=== PATIENT | female | born 1935 | race Two or more races ===

== ENCOUNTER 2021-12-04 11:21 | Emergency (ER) | payer OTHER, SELFPAY ==
--- NOTE | ~2021-12-04 | XR_ITS ---
EXAMINATION: XR chest 1V CLINICAL INFORMATION: Reason for Exam cardiac arrest, pulm edema? COMPARISON: None TECHNIQUE: XR chest 1V Tubes and lines: Endotracheal tube tip is approximately 3.6 cm from cathie, gastric tube passing below the diaphragm into the stomach. Lungs and pleura: Bilateral diffuse airspace interstitial opacification suggesting diffuse infiltrates possible aspiration or pulmonary edema. Heart and mediastinum: The mediastinum is within normal limits.. Bones/soft tissue: Skeletal structures included are normal for patient's age. XR/XR chest 1V IMPRESSION: *Bilateral diffuse interstitial and airspace opacification suggesting diffuse infiltrates versus interstitial edema. *ET tube and gastric tube in place properly positioned.
--- NOTE | 2021-12-04 11:30 | PC.NURSE ---
plz see paperwork.
[2021-12-04 11:40] LABS: MANUAL DIFF FLAG NO
[2021-12-04 11:47] VITALS: BP 148/92; PULSE 138; TEMP 35.5; O2SAT 90
[2021-12-04 11:53] LABS: Glucose, Whole Blood 131 mg/dL (60-115)
[2021-12-04 11:58] LABS: Basophils Percent Auto 0.3 % (0-2); Eosinophils Absolute Auto 0.1 X10*3/uL (0.0-0.4); Eosinophils Percent Auto 0.7 % (0-4); Hematocrit 24.8 % (37.0-47.0); Hemoglobin 7.8 g/dl (12.0-16.0); Imm Gran Abs Auto 0.15 X10*3/uL (0.00-0.03); Imm Gran Pct Auto 1.6 % (0.0-0.4); Lymphocytes Absolute Auto 3.1 X10*3/uL (1.2-4.9); Lymphocytes Percent Auto 32.8 % (20-40); Mean Corpuscular HGB Conc 31.5 g/dl (31.0-35.0); Mean Corpuscular Hemoglobin 32.2 pg (27.0-33.0); Mean Corpuscular Volume 102.5 fL (80.0-98.0); Mean Platelet Volume 11.1 fL (9.4-12.3); Monocytes Absolute Auto 0.5 X10*3/uL (0.1-1.2); Monocytes Percent Auto 5.6 % (2-11); Neutrophils Absolute Auto 5.6 x10*3/uL (2.0-8.3); Platelet Count 133 X10*3/uL (160-400); Red Blood Count 2.42 X10*6/uL (4.20-5.50); Red Cell Distribution Width 15.4 % (11.0-16.0); White Blood Count 9.5 X10*3/uL (4.8-10.8)
[2021-12-04 12:03] LABS: INTERNATIONAL NORM RATIO 1.5 (0.9-1.1); Prothrombin Time 17.8 SEC (10.0-13.1)
[2021-12-04 12:05] LABS: B Type Natriuretic Peptide 1035 pg/mL (<100); Troponin-I High Sensitivity 13.8 ng/L (<3.5-17.0)
[2021-12-04 12:16] LABS: D Dimer High Sensitivity 4459 NG/ML
[2021-12-04 12:20] LABS: Lactic Acid 5.3 mmol/L (0.5-2.0)
[2021-12-04 12:20] LABS: Alanine Aminotransferase 17 U/L (0-31); Albumin Level 2.4 g/dL (3.5-5.0); Alkaline Phosphatase 142 U/L (39-117); Anion Gap 16 (12-20); Aspartate Amino Transferase 35 U/L (5-31); Bilirubin Direct 0.3 mg/dL (0.0-0.5); Bilirubin Total 0.8 mg/dL (0.0-1.0); Blood Urea Nitrogen 17 mg/dL (9-16); Calcium 6.5 mg/dL (8.4-10.2); Carbon Dioxide 29 mmol/L (22-29); Chloride 101 mmol/L (96-108); Estimated Glomerular Filt Rate 26; Glucose Random 630 mg/dL (60-115); Magnesium 1.4 mg/dL (1.6-2.6); Potassium 2.8 mmol/L (3.3-5.1); Sodium 143 mmol/L (135-145); Total Protein 5.2 g/dL (6.5-8.0)
[2021-12-04 12:23] LABS: VBG Base Excess -1.2 mmol/L; VBG HCO3 26 mmol/L (22-26); VBG pCO2 58 mmHg; VBG pH 7.26 (7.32-7.43); VBG pO2 31 mmHg
[2021-12-04 12:24] LABS: Venous Blood Gas Refer to POC result
[2021-12-04 12:57] LABS: TSH reflex Free T4 2.52 uIU/mL (0.32-4.0)
--- NOTE | 2021-12-04 12:57 | PC.NURSE ---
TWO CALLS MADE TO [facility] STAT LINE FOR ED MD TO SPEAK WITH [facility] [place] [employer] TECHNICIAN. NO RESPONSE AT THIS TIME.
[2021-12-04 13:45] LABS: ABG Base Excess -1.1 mmol/L; ABG HCO3 26 mmol/L (22-26); ABG pCO2 56 mmHg (32-45); ABG pH 7.27 (7.35-7.45); ABG pO2 101 mmHg (83-108)
[2021-12-04 13:59] LABS: Reflex Lactate? Lactic Acid Added
--- NOTE | 2021-12-04 14:17 | ED_ITS ---
HPI - CPR General Chief Complaint: Cardiac Arrest/CPR Stated Complaint: CARDIAC ARREST Time Seen by Provider: 12/04/21 11:27 Source: EMS Mode of arrival: EMS Limitations: other (Intubated) History of Present Illness HPI narrative: Patient comes to the emergency room via EMS from dialysis. Patient arrived to the dialysis facility. Before the dialysis started, patient had a witnessed cardiac arrest, she was lowered from the recliner down to the floor, CPR was started. According to EMS, they did CPR for 2 minutes, 1 dose of epinephrine was given. They regained ROSC, heart rate in the 150s, blood pressure in the 90s, patient was brought to the emergency room. Patient was intubated in the field by EMS Related Data Allergies Allergy/AdvReac Type Severity Reaction Status Date / Time No Known Allergies Allergy Verified 12/04/21 11:42 Review of Systems Review of Systems: Yes Unobtainable due to mental condition PMFSH Past Medical History Medical History Atrial fibrillation CHF (congestive heart failure) End stage renal disease on dialysis Hx of assisted use of blood thinners Hypertension Social History Social History Advance Directives: No Physical Exam Vital Signs: Vital Signs: Last Vital Signs FiO2 100 12/04/21 11:47 Const: Other: Appearance: Unresponsive Eyes: Fixed by bilateral pupils, round and not reactive to light ENT: ET tube in place, there was a large amount of frothy sputum and blood in the ET tube Neck: Normal inspection. Neck supple. No lymph nodes noted. No crepitus CVS: Tachycardic, heart rate 150s blood pressure in the 90s Respiratory: Intubated Abdomen: Soft and distended Skin: Skin warm and dry. Diffusely pale Extremities: Bilateral +2 pitting edema Neuro: Unresponsive Psych: Unresponsive Course Course Course Narrative: Patient arrived approximately at 11:20. Patient was already intubated, heart rate in the 150s, blood pressure in the 90s. Shortly after, patient became pulseless, CPR was started. Patient has a right and left external jugular that was inserted by me, patient came in with an IO in her right tibia Patient had not had dialysis yet, there was no clear reason for patient's cardiac arrest, we were assuming hyperkalemia, we do not have I stat for potassium. We treated empirically for hyperkalemia with 2 amps of bicarbonate, 50 mg of D50, 10 units of insulin, calcium chloride After 2 rounds of CPR and 2 rounds of epinephrine, patient regained pulse Patient was also given rectal aspirin, patient took Eliquis last night In summary, from 11:20 to 14:50, patient went into cardiac arrest 7 times Each time that the patient will go into cardiac arrest, she will initially start with bradycardia for which I atropine was given, then arrest. Multiple doses of epinephrine were given, Levophed was started After 2-3 rounds of CPR, patient would regain ROSC with a heart rate in the 150s to 160s, blood pressure approximately [address] elevation in AVR and depression in the lateral leads In between cardiac arrest, Dr. Coffman was at bedside as well doing echocardiograph this and advising us. He did a bedside ultrasound, looks like the patient has anterior apical akenesis. We called [facility] cardiac analyst microbiology lab. Patient was admitted to the Cardiac CCU, patient was going to be life flighted but prior today arrival, patient went into cardiac arrest the 7th time. 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 All of the pressors were stopped. Within a few minutes patient went to a systole and time of was called at 02:50 with her family at bedside The cause of that is unclear, but likely secondary to hypoxia/pulmonary edema from a CHF exacerbation and and a possible evolving infarct MDM - Cardiac Arrest/CPR Lab Data Result diagrams: 12/04/21 11:31 12/04/21 11:31 Labs: Lab Results 12/04/21 12/04/21 12/04/21 Range/Units 11:24 11:31 11:31 WBC 9.5 (4.8-10.8) X10*3/uL RBC 2.42 L (4.20-5.50) X10*6/uL Hgb 7.8 L (12.0-16.0) g/dl Hct 24.8 L (37.0-47.0) % MCV 102.5 H (80.0-98.0) fL MCH 32.2 (27.0-33.0) pg MCHC 31.5 (31.0-35.0) g/dl RDW 15.4 (11.0-16.0) % Plt Count 133 L (160-400) X10*3/uL MPV 11.1 (9.4-12.3) fL Immature Gran % (Auto) 1.6 H (0.0-0.4) % Neut % (Auto) 59.0 (45-73) % Lymph % (Auto) 32.8 (20-40) % [place] % (Auto) 5.6 (2-11) % Eos % (Auto) 0.7 (0-4) % Baso % (Auto) 0.3 (0-2) % Lymph # (Auto) 3.1 (1.2-4.9) X10*3/uL [place] # (Auto) 0.5 (0.1-1.2) X10*3/uL Eos # (Auto) 0.1 (0.0-0.4) X10*3/uL Baso # (Auto) 0.0 (0.0-0.2) X10*3/uL Abs Immat Gran (auto) 0.15 H (0.00-0.03) X10*3/uL Absolute Neuts (auto) 5.6 (2.0-8.3) x10*3/uL Absolute Nucleated RBC 0.000 (0.0-0.012) X10*3/uL Nucleated RBC % (auto) 0.0 (0.0-0.2) /100WBC PT (10.0-13.1) SEC INR (0.9-1.1) Whole Blood INR D-Dimer High Sensitivty NG/ML O2 Saturation % ABG pH at Pt Temp (7.35-7.45) ABG pCO2 at Pt Temp (32-45) mmHg ABG pO2 at Pt Temp (83-108) mmHg ABG HCO3 (22-26) mmol/L ABG Base Excess (Actual) mmol/L VBG pH (7.32-7.43) VBG pCO2 mmHg VBG pO2 mmHg VBG HCO3 (22-26) mmol/L VBG O2 Saturation % VBG Base Excess mmol/L Sodium 143 (135-145) mmol/L Potassium 2.8 L (3.3-5.1) mmol/L Chloride 101 (96-108) mmol/L Carbon Dioxide 29 (22-29) mmol/L Anion Gap 16 (12-20) BUN 17 H (9-16) mg/dL Creatinine 1.82 H (0.5-1.4) mg/dL Estim Creat Clear Calc TNP Estimated GFR 26 POC Glucose 131 H (60-115) mg/dL Random Glucose 630 H* (60-115) mg/dL Lactic Acid (0.5-2.0) mmol/L Calcium 6.5 L (8.4-10.2) mg/dL Magnesium 1.4 L* (1.6-2.6) mg/dL Total Bilirubin 0.8 (0.0-1.0) mg/dL Direct Bilirubin 0.3 (0.0-0.5) mg/dL AST 35 H (5-31) U/L ALT 17 (0-31) U/L Alkaline Phosphatase 142 H (39-117) U/L Troponin I High Sens (<3.5-17.0) ng/L B-Natriuretic Peptide (<100) pg/mL Total Protein 5.2 L (6.5-8.0) g/dL Albumin 2.4 L (3.5-5.0) g/dL TSH 2.52 (0.32-4.0) uIU/mL COVID-19 ([facility]) (Negative) COVID-19 Clin Com 12/04/21 12/04/21 12/04/21 Range/Units 11:31 11:31 11:31 WBC (4.8-10.8) X10*3/uL RBC (4.20-5.50) X10*6/uL Hgb (12.0-16.0) g/dl Hct (37.0-47.0) % MCV (80.0-98.0) fL MCH (27.0-33.0) pg MCHC (31.0-35.0) g/dl RDW (11.0-16.0) % Plt Count (160-400) X10*3/uL MPV (9.4-12.3) fL Immature Gran % (Auto) (0.0-0.4) % Neut % (Auto) (45-73) % Lymph % (Auto) (20-40) % [place] % (Auto) (2-11) % Eos % (Auto) (0-4) % Baso % (Auto) (0-2) % Lymph # (Auto) (1.2-4.9) X10*3/uL [place] # (Auto) (0.1-1.2) X10*3/uL Eos # (Auto) (0.0-0.4) X10*3/uL Baso # (Auto) (0.0-0.2) X10*3/uL Abs Immat Gran (auto) (0.00-0.03) X10*3/uL Absolute Neuts (auto) (2.0-8.3) x10*3/uL Absolute Nucleated RBC (0.0-0.012) X10*3/uL Nucleated RBC % (auto) (0.0-0.2) /100WBC PT 17.8 H (10.0-13.1) SEC INR 1.5 H (0.9-1.1) Whole Blood INR Cancelled D-Dimer High Sensitivty 4459 NG/ML O2 Saturation % ABG pH at Pt Temp (7.35-7.45) ABG pCO2 at Pt Temp (32-45) mmHg ABG pO2 at Pt Temp (83-108) mmHg ABG HCO3 (22-26) mmol/L ABG Base Excess (Actual) mmol/L VBG pH (7.32-7.43) VBG pCO2 mmHg VBG pO2 mmHg VBG HCO3 (22-26) mmol/L VBG O2 Saturation % VBG Base Excess mmol/L Sodium (135-145) mmol/L Potassium (3.3-5.1) mmol/L Chloride (96-108) mmol/L Carbon Dioxide (22-29) mmol/L Anion Gap (12-20) BUN (9-16) mg/dL Creatinine (0.5-1.4) mg/dL Estim Creat Clear Calc Estimated GFR POC Glucose (60-115) mg/dL Random Glucose (60-115) mg/dL Lactic Acid (0.5-2.0) mmol/L Calcium (8.4-10.2) mg/dL Magnesium (1.6-2.6) mg/dL Total Bilirubin (0.0-1.0) mg/dL Direct Bilirubin (0.0-0.5) mg/dL AST (5-31) U/L ALT (0-31) U/L Alkaline Phosphatase (39-117) U/L Troponin I High Sens 13.8 (<3.5-17.0) ng/L B-Natriuretic Peptide 1035 H (<100) pg/mL Total Protein (6.5-8.0) g/dL Albumin (3.5-5.0) g/dL TSH (0.32-4.0) uIU/mL COVID-19 ([facility]) (Negative) COVID-19 Clin Com 12/04/21 12/04/21 12/04/21 Range/Units 11:51 11:59 12:17 WBC (4.8-10.8) X10*3/uL RBC (4.20-5.50) X10*6/uL Hgb (12.0-16.0) g/dl Hct (37.0-47.0) % MCV (80.0-98.0) fL MCH (27.0-33.0) pg MCHC (31.0-35.0) g/dl RDW (11.0-16.0) % Plt Count (160-400) X10*3/uL MPV (9.4-12.3) fL Immature Gran % (Auto) (0.0-0.4) % Neut % (Auto) (45-73) % Lymph % (Auto) (20-40) % [place] % (Auto) (2-11) % Eos % (Auto) (0-4) % Baso % (Auto) (0-2) % Lymph # (Auto) (1.2-4.9) X10*3/uL [place] # (Auto) (0.1-1.2) X10*3/uL Eos # (Auto) (0.0-0.4) X10*3/uL Baso # (Auto) (0.0-0.2) X10*3/uL Abs Immat Gran (auto) (0.00-0.03) X10*3/uL Absolute Neuts (auto) (2.0-8.3) x10*3/uL Absolute Nucleated RBC (0.0-0.012) X10*3/uL Nucleated RBC % (auto) (0.0-0.2) /100WBC PT (10.0-13.1) SEC INR (0.9-1.1) Whole Blood INR D-Dimer High Sensitivty NG/ML O2 Saturation % ABG pH at Pt Temp (7.35-7.45) ABG pCO2 at Pt Temp (32-45) mmHg ABG pO2 at Pt Temp (83-108) mmHg ABG HCO3 (22-26) mmol/L ABG Base Excess (Actual) mmol/L VBG pH 7.26 L (7.32-7.43) VBG pCO2 58 mmHg VBG pO2 31 mmHg VBG HCO3 26 (22-26) mmol/L VBG O2 Saturation 31.0 % VBG Base Excess -1.2 mmol/L Sodium (135-145) mmol/L Potassium (3.3-5.1) mmol/L Chloride (96-108) mmol/L Carbon Dioxide (22-29) mmol/L Anion Gap (12-20) BUN (9-16) mg/dL Creatinine (0.5-1.4) mg/dL Estim Creat Clear Calc Estimated GFR POC Glucose 334 H (60-115) mg/dL Random Glucose (60-115) mg/dL Lactic Acid 5.3 H* (0.5-2.0) mmol/L Calcium (8.4-10.2) mg/dL Magnesium (1.6-2.6) mg/dL Total Bilirubin (0.0-1.0) mg/dL Direct Bilirubin (0.0-0.5) mg/dL AST (5-31) U/L ALT (0-31) U/L Alkaline Phosphatase (39-117) U/L Troponin I High Sens (<3.5-17.0) ng/L B-Natriuretic Peptide (<100) pg/mL Total Protein (6.5-8.0) g/dL Albumin (3.5-5.0) g/dL TSH (0.32-4.0) uIU/mL COVID-19 ([facility]) (Negative) COVID-19 Clin Com 12/04/21 12/04/21 Range/Units 13:40 14:10 WBC (4.8-10.8) X10*3/uL RBC (4.20-5.50) X10*6/uL Hgb (12.0-16.0) g/dl Hct (37.0-47.0) % MCV (80.0-98.0) fL MCH (27.0-33.0) pg MCHC (31.0-35.0) g/dl RDW (11.0-16.0) % Plt Count (160-400) X10*3/uL MPV (9.4-12.3) fL Immature Gran % (Auto) (0.0-0.4) % Neut % (Auto) (45-73) % Lymph % (Auto) (20-40) % [place] % (Auto) (2-11) % Eos % (Auto) (0-4) % Baso % (Auto) (0-2) % Lymph # (Auto) (1.2-4.9) X10*3/uL [place] # (Auto) (0.1-1.2) X10*3/uL Eos # (Auto) (0.0-0.4) X10*3/uL Baso # (Auto) (0.0-0.2) X10*3/uL Abs Immat Gran (auto) (0.00-0.03) X10*3/uL Absolute Neuts (auto) (2.0-8.3) x10*3/uL Absolute Nucleated RBC (0.0-0.012) X10*3/uL Nucleated RBC % (auto) (0.0-0.2) /100WBC PT (10.0-13.1) SEC INR (0.9-1.1) Whole Blood INR D-Dimer High Sensitivty NG/ML O2 Saturation 95.0 % ABG pH at Pt Temp 7.27 L (7.35-7.45) ABG pCO2 at Pt Temp 56 H (32-45) mmHg ABG pO2 at Pt Temp 101 (83-108) mmHg ABG HCO3 26 (22-26) mmol/L ABG Base Excess (Actual) -1.1 mmol/L VBG pH (7.32-7.43) VBG pCO2 mmHg VBG pO2 mmHg VBG HCO3 (22-26) mmol/L VBG O2 Saturation % VBG Base Excess mmol/L Sodium (135-145) mmol/L Potassium (3.3-5.1) mmol/L Chloride (96-108) mmol/L Carbon Dioxide (22-29) mmol/L Anion Gap (12-20) BUN (9-16) mg/dL Creatinine (0.5-1.4) mg/dL Estim Creat Clear Calc Estimated GFR POC Glucose (60-115) mg/dL Random Glucose (60-115) mg/dL Lactic Acid (0.5-2.0) mmol/L Calcium (8.4-10.2) mg/dL Magnesium (1.6-2.6) mg/dL Total Bilirubin (0.0-1.0) mg/dL Direct Bilirubin (0.0-0.5) mg/dL AST (5-31) U/L ALT (0-31) U/L Alkaline Phosphatase (39-117) U/L Troponin I High Sens (<3.5-17.0) ng/L B-Natriuretic Peptide (<100) pg/mL Total Protein (6.5-8.0) g/dL Albumin (3.5-5.0) g/dL TSH (0.32-4.0) uIU/mL COVID-19 ([facility]) Negative (Negative) COVID-19 Clin Com See Note Critical Care Time Critical Care Time Critical Care Time: Yes Total Critical Care Time: 180 Attestation: Please follow-up with your primary care physician tomorrow. If you have any worsening or new symptoms, please return to the emergency room or call [phone] Discharge Plan Discharge Clinical Impression: Cardiac arrest Patient Disposition: Discharge Date/Time: 12/04/21 17:57 Date/Time: 12/04/21 14:50
[2021-12-04 14:24] LABS: Glucose, Whole Blood 334 mg/dL (60-115)
[2021-12-04 14:37] LABS: COVID-19 Test Negative (Negative); IDNOW Serial# 9DB6401D
--- NOTE | 2021-12-04 15:12 | PC.NURSE ---
this rn spoke with liam ([facility], ), pt was declined due to her age per liam.
[2021-12-05 07:42] LABS: ABG Base Excess -0.7 mmol/L; ABG HCO3 27 mmol/L (22-26); ABG pCO2 58 mmHg (32-45); ABG pH 7.27 (7.35-7.45); ABG pO2 28 mmHg (83-108)
== END 2021-12-04 17:57 | disposition expired ==
PROVIDERS: Emergency Provider Emergency Medicine
DX: I46.9 Cardiac arrest, cause unspecified (principal); R06.02 Shortness of breath; Z20.822 Contact with and (suspected) exposure to COVID-19; Z79.899 Other long term (current) drug therapy
CPT/HCPCS: 36415; 71045; 80048; 80076; 82803; 82947; 83605; 83735; 83880; 84443; 84484; 85025; 85379; 85610; 87040; 87077; 87186; 87205; 87635; 94002; 96374; 96375; 99283; 99285; J0171; J0461